=== PATIENT | female | born 1995 | race Caucasian/White ===

== ENCOUNTER 2018-05-03 11:50 | Emergency (ER) | payer OTHER ==
[2018-05-03 12:05] VITALS: BMI 33.8
[2018-05-03 12:23] VITALS: RESP 16
--- NOTE | 2018-05-03 12:58 | C.PDOC ---
Time Seen by Provider: 05/03/18 12:16 Chief Complaint (Nursing): Medical Clearance Past Medical History Vital Signs: Last Vital Signs Temp 98.7 F 05/03/18 12:11 Pulse 86 05/03/18 12:11 Resp 16 05/03/18 12:11 BP 101/69 05/03/18 12:11 Pulse Ox 98 05/03/18 12:11 - Social History Hx Alcohol Use: No Hx Substance Use: No - Immunization History Hx Tetanus Toxoid Vaccination: No Hx Influenza Vaccination: No Hx Pneumococcal Vaccination: No ED Course And Treatment O2 Sat by Pulse Oximetry: 98 Disposition - Disposition
--- NOTE | 2018-05-03 12:59 | C.PDOC ---
History Of Present Illness 23 year old female presents to the ED for evaluation of right-sided facial pain which began around 5 days ago. Patient reports a painful burning sensation which starts around her right ear and radiates towards her right lip and down her neck. Patient also reports pain in her gums. She had an appointment with telemedicine and was prescribed Clindamycin for suspected infection. Patient has been taking Clindamycin as well as Tylenol for pain with minimal relief. Yesterday, she was evaluated in [facility] and prescribed Medrol dose pack for trimgeminal neuralgia. Patient started the pack today, but presents to the ED today requesting something else for her pain. She denies fever, chills, dental pain, recent trauma/injury to the site. Time Seen by Provider: 05/03/18 12:16 Chief Complaint (Nursing): Medical Clearance History Per: Patient History/Exam Limitations: no limitations Onset/Duration Of Symptoms: Days (5) Current Symptoms Are (Timing): Still Present Additional History Per: Patient Past Medical History Reviewed: Historical Data, Nursing Documentation, Vital Signs Vital Signs: Last Vital Signs Temp 98.7 F 05/03/18 12:11 Pulse 86 05/03/18 12:11 Resp 16 05/03/18 12:11 BP 101/69 05/03/18 12:11 Pulse Ox 98 05/03/18 12:58 - Medical History PMH: No Chronic Diseases Surgical History: No Surg Hx Family History: States: Unknown Family Hx - Social History Hx Alcohol Use: No Hx Substance Use: No - Immunization History Hx Tetanus Toxoid Vaccination: No Hx Influenza Vaccination: No Hx Pneumococcal Vaccination: No Review Of Systems Constitutional: Negative for: Fever, Chills ENT: Positive for: Other (gum pain ). Negative for: Mouth Pain (dental pain ) Respiratory: Negative for: Shortness of Breath Skin: Negative for: Rash, Lesions, Jaundice, Bruising Neurological: Positive for: Other (burning pain to right side of face ). Negative for: Weakness, Numbness, Change in Speech, Headache Physical Exam - Physical Exam Appears: Non-toxic, No Acute Distress Skin: Normal Color, Warm, Dry Head: Atraumatic, Normacephalic, No Tenderness, No Swelling Eye(s): bilateral: Normal Inspection Oral Mucosa: Moist Teeth: Caries (to right upper tooth ), No Tender To Palpation (right upper tooth ), Other (missing right and left lower molars ) Gingiva: No Swelling, Tender (upper and lower gums ) Neck: Supple Lymphatic: No Adenopathy Neurological/Psych: Oriented x3, Normal Speech, Normal Cognition, No Normal Sensation (subjectivel different sensation starting from anterior aspect of right ear extending to distal third of right face and lip) Gait: Steady ED Course And Treatment O2 Sat by Pulse Oximetry: 98 (on RA) Pulse Ox Interpretation: Normal Medical Decision Making Medical Decision Making: pt with right facial pain, similar to trigeminal neuralgia. will give 2 week trial on carbamazepine, with f/u in med clinic, referral to neuro recommended. Disposition - Disposition Referrals: [facility] at [facility] [Outside] Disposition: HOME/ ROUTINE Condition: GOOD Additional Instructions: Please follow up with medical clinic as soon as possible with referral to neurology recommended. Take medications as prescribed. Return to ER for any worsening symptoms or other concerns. Prescriptions: Carbamazepine [Carbamazepine ER] 200 mg PO DAILY #14 cer Instructions: Trigeminal Neuralgia, Carbamazepine Forms: General Discharge Instructions, [facility] (Korean), Work Excuse - Clinical Impression Clinical Impression: Right sided facial pain - PA / [employer] / Resident Statement MD/DO has reviewed & agrees with the documentation as recorded. - Scribe Statement The provider has reviewed the documentation as recorded by the Scribe (Ayla Young) All medical record entries made by the Scribe were at my direction and personally dictated by me. I have reviewed the chart and agree that the record accurately reflects my personal performance of the history, physical exam, medical decision making, and the department course for this patient. I have also personally directed, reviewed, and agree with the discharge instructions and disposition.
--- NOTE | 2018-05-03 13:27 | C.PDOC ---
Time Seen by Provider: 05/03/18 12:16 Chief Complaint (Nursing): Medical Clearance Past Medical History Vital Signs: Last Vital Signs Temp 98.7 F 05/03/18 12:11 Pulse 86 05/03/18 12:11 Resp 16 05/03/18 12:11 BP 101/69 05/03/18 12:11 Pulse Ox 98 05/03/18 12:11 - Social History Hx Alcohol Use: No Hx Substance Use: No - Immunization History Hx Tetanus Toxoid Vaccination: No Hx Influenza Vaccination: No Hx Pneumococcal Vaccination: No ED Course And Treatment O2 Sat by Pulse Oximetry: 98 Medical Decision Making Medical Decision Making: pt with right facial pain, similar to trigeminal neuralgia. will give 2 week trial on carbamazepine, with f/u in med clinic, referral to neuro recommended. Disposition Counseled Patient/Family Regarding: Diagnosis, Need For Followup, Rx Given - Disposition Referrals: [facility] at [facility] [Outside] Disposition: HOME/ ROUTINE Disposition Time: 13:29 Condition: GOOD Prescriptions: Carbamazepine [Carbamazepine ER] 200 mg PO DAILY #14 cer Instructions: Trigeminal Neuralgia Forms: [facility] (Senegalese), General Discharge Instructions, Work Excuse - Clinical Impression Clinical Impression: Right sided facial pain
[2018-05-03 13:47] VITALS: BP 108/65; PULSE 84; TEMP 98.6
[2018-05-04 21:23] VITALS: O2SAT 98
== END 2018-05-03 13:47 | disposition home or self-care (01) ==
LOC: C.ER 11:50
DX: R51 Headache (principal)